=== PATIENT | female | born 1960 | race Caucasian/White ===

== ENCOUNTER → 2021-05-25 14:55 | Outpatient (CLI) | payer OTHER, SELFPAY ==
[2021-05-25 16:23] LABS: Cholesterol 194 mg/dL (140-199); HDL Cholesterol 41 mg/dL (40-60); LDL Cholesterol Calculated 116 mg/dL (<100); Triglycerides 187 mg/dL (35-150)
== END ==
PROVIDERS: PCP Student in an Organized Health Care Education/Training Program; Referring Provider Student in an Organized Health Care Education/Training Program; Visit Provider Student in an Organized Health Care Education/Training Program
DX: Z13.220 Encounter for screening for lipoid disorders (principal)
CPT/HCPCS: 36415; 80061

== ENCOUNTER → 2021-07-09 13:17 | Outpatient (CLI) | payer OTHER, SELFPAY ==
--- NOTE | 2021-07-09 | DI.MG.S_ITS ---
BILATERAL DIGITAL SCREENING MAMMOGRAM 3D/2D WITH CAD: 07/09/2021 CLINICAL: Routine screening. Comparison is made to exams dated: 07/12/2018 mammogram and 12/23/2019 mammogram - outside facility. The tissue of both breasts is predominantly fatty. Current study was also evaluated with a Computer Aided Detection (CAD) system. No significant masses, calcifications, or other findings are seen in either breast. There has been no significant interval change. IMPRESSION: NEGATIVE There is no mammographic evidence of malignancy. A 1 year screening mammogram is recommended. This exam was interpreted at Station ID: [id number]. NOTE: For mammograms, a report in lay terms will be sent to the patient. Approximately 15% of breast malignancies will not be visualized mammographically. In the management of a palpable breast mass, a negative mammogram must not discourage biopsy of a clinically suspicious lesion. Electronically Signed By: Arjun Kong M.D., jr/angelito:07/09/2021 14:45:41 letter sent: Normal Exam ACR BI-RADS Category 1: Negative 3341F
== END ==
PROVIDERS: PCP Student in an Organized Health Care Education/Training Program; Referring Provider Student in an Organized Health Care Education/Training Program; Visit Provider Student in an Organized Health Care Education/Training Program
DX: Z12.31 Encounter for screening mammogram for malignant neoplasm of breast (principal)
CPT/HCPCS: 77063; 77067

== ENCOUNTER 2022-04-04 07:15 | Day surgery (SDC) | payer OTHER, SELFPAY ==
--- NOTE | 2022-04-04 | PATH_ITS ---
[facility] Accession Number: [id number] . 01 Material submitted: . PART A: duodenum - DUODENUM BIOPSY PART B: gastrointestinal site - ANTRUM BIOPSY PART C: ileo-cecal valve - ILEOCECAL VALVE BIOPSY . 01 Diagnosis: A. Duodenum, Biopsy: Duodenal mucosa with mildly increased intraepithelial lymphocytes and predominantly reserved villous architecture; please see comment. Negative for active inflammation, granulomas, dysplasia or malignancy. . B. Antrum, Biopsy: Gastric antral mucosa with mild chronic inflammation. Negative for Helicobacter organisms by immunohistochemistry. Negative for intestinal metaplasia. Negative for dysplasia or malignancy. . C. Ileocecal Valve, Biopsy: Mild active colitis; please see comment. Negative for granulomas, dysplasia or malignancy. [facility] 04/07/2022 1820 Local . 01 Comment: A. The presence of increased intraepithelial lymphocytes is nonspecific but may be associated with early onset or previously treated celiac sprue as well as with Helicobacter pylori infection or peptic injury. It may also be seen in association with NSAID therapy, small bowel bacterial overgrowth, non-gluten protein allergies, or certain autoimmune diseases (e.g. autoimmune enteropathy, autoimmune gastritis, diabetes, rheumatoid arthritis). If celiac disease is suspected clinically, correlation with serologic studies is recommended. . C. The histologic findings in the ileocecal valve biopsy raise a differential diagnosis including infection, drug/toxin induced injury, and in the appropriate clinical setting, idiopathic inflammatory bowel disease. . 01 Electronically signed: . Reji Gan MD, PhD, Pathologist NPI- [id number] . 01 Gross description: . Part A: DUODENUM BIOPSY: Received in formalin are 4 fragment(s) of lu, soft tissue measuring 0.1 x 0.1 x 0.1 cm to 0.3 x 0.3 x 0.3 cm submitted entirely in 1 cassette(s) Part B: ANTRUM BIOPSY: Received in formalin are 2 fragment(s) of lu, soft tissue measuring 0.1 x 0.1 x 0.1 cm to 0.3 x 0.3 x 0.2 cm submitted entirely in 1 cassette(s) Part C: ILEOCECAL VALVE BIOPSY: Received in formalin are 2 fragment(s) of lu, soft tissue measuring 0.1 x 0.1 x 0.1 cm to 0.3 x 0.2 x 0.2 cm submitted entirely in 1 cassette(s) /BRANDYN 04/06/2022 0040 Local . 01 Microscopic: . B. An immunohistochemical stain was performed to evaluate for Helicobacter organisms and is negative. The control stain showed appropriate reactivity. . * This test was developed and its performance characteristics determined by [employer]. It has not been cleared or approved by the U.S. Food and Drug Administration. The FDA has determined that such clearance or approval is not necessary. This test is used for clinical purposes. It should not be regarded as investigational or for research. . 01 Pathologist provided ICD-10: K29.80, K29.70, K52.9 . 01 CPT . 687208, 955931, 976272, D00283 Specimen Comment: A courtesy copy of this report has been sent to [phone] Performed at: [address] [place] [address] [address] [place] [address], [place], [place] [id number] MD Melvin Null MD Phone: [phone]
[2022-04-04 07:43] VITALS: BMI 19.8
[2022-04-04 07:48] VITALS: BP 102/69; PULSE 78; RESP 12; TEMP 36.4; O2SAT 99
[2022-04-04 07:57] LABS: COVID19 -Nasal RAPID Negative (Negative)
[2022-04-04] MEDS: SODIUM CHLORIDE 0.9% 1,000 ML 84 ML IV (07:57)
--- NOTE | 2022-04-04 08:05 | PM.HP.1 ---
History of Present Illness History of Present Illness Date Patient Seen: 04/04/22 Time Patient Seen: 08:05 Chief complaint: COLONOSCOPY/EGD W/POSS BX'S Narrative: I reviewed my recent office note. Patient seems to respond well to PPI. Weight is still down but she does not continue to lose weight. Patient History Medical History Chicken pox Chronic back pain Foot pain (~2011) Frozen shoulder (~2014) Mumps Surgical History Anesthesia Cyst of stomach (~04/2012) Foot neuroma (~09/2013) History of colonoscopy (~08/2016) Intestinal adhesions (~10/2015) Ovarian cyst (~12/2011) Family & Social History Family History Mother Cancer Hyperlipidemia Grandfather Cancer Grandmother History of heart disease Grandmother Stroke Social History: household members spouse Tobacco & Substance use: Smoking Status Never smoker alcohol intake current alcohol intake frequency a few times a month Substance Use Type does not use Meds Home Medications and Allergies Home Medications Medication Instructions Recorded Confirmed Type cetirizine 10 mg capsule (Zyrtec) 10 mg PO DAILY PRN Allergy Symptoms 07/30/20 04/04/22 History omeprazole 20 mg tablet,delayed 20 mg PO DAILY 04/04/22 04/04/22 History release Allergies Allergy/AdvReac Type Severity Reaction Status Date / Time No Known Drug Allergies Allergy Verified 04/04/22 07:41 Review of Systems Review of Systems ROS: Yes All systems reviewed with the patient and are negative except as otherwise documented Exam Vital Signs (past 8 hours): - 04/04/22 07:48 Temperature 97.6 F Pulse Rate 78 Respiratory Rate 12 Blood Pressure 102/69 Pulse Oximetry 99 Oxygen Delivery Method Room Air Oxygen Delivery Method Room Air Const General: cooperative HENMT Head: normal to inspection Eyes General: appearance normal, both eyes and all related structures Neck Neck: normal visual inspection Chest Chest: normal inspection of the chest Resp Effort & Inspection: normal respiratory effort Cardio Rate: regular rate GI Inspection: normal to inspection Skin General: no rashes or lesions noted Neuro General: patient alert and patient awake Extrem General: normal to inspection and no pedal edema Psych Appearance: grossly normal Objective Labs Labs: Laboratory Results - last 24 hr 04/04/22 07:37 SARS-CoV-2 (PCR) Negative Assessment & Plan Assessment & Plan narrative: 61-year-old female with abdominal pain weight loss early satiety mostly responsive to PPI. She has a history of colon polyps. EGD and colonoscopy is pursued today. Time Spent With Patient Critical Care time: I spent a total of [] minutes of critical care time on this patient's care today; this time is exclusive of procedural time.
--- NOTE | 2022-04-04 08:07 | PM.PREOP ---
Pre-operative Note COVID-19 COVID-19 status: Negative Result date/Date tested (Pos, Neg/Pending): 04/04/22 Criteria for continued procedure: Possibility delay results in more complex future surgery or treatment Interval Note History & Physical reviewed/Exam performed by Physician: Yes Changes to H&P: No ASA Class (for procedural sedation): II
--- NOTE | 2022-04-04 09:29 | P.OP.EGD&C_ITS ---
Operative Date/Time/Diagnoses Date of procedure: 04/04/22 Time of procedure: 09:29 Pre-op diagnosis: Weight loss early satiety reflux abdominal pain personal history of colon polyps. Post-op diagnosis: same Procedure & Clinicians Study performed: EGD with biopsies and colonoscopy with biopsies Same procedure as scheduled: Yes Indications: Weight loss early satiety reflux abdominal pain personal history of colon polyps. Surgeon: Israel Enriquez Procedure Notes SCOAP/Timeout: Done Procedure in detail: After the risks and benefits were explained, written and verbal informed consent was obtained. The patient was brought into the procedure room and placed into the left lateral decubitus position. Please see nurse primary health organisation manager notes for sedation details. The scope was introduced into the mouth through the bite bloc k and advanced under direct visualization to the 2nd portion of the duodenum. The scope was slowly withdrawn carefully examining the mucosa for any defects or lesions. Retroflexed views were accomplished in the stomach. The stomach was decompressed, the scope was then removed from the patient who tolerated the procedure well. The patient was then turned around a digital rectal examination accomplished. The scope was introduced into the rectum and advanced to the cecum as identified by the appendiceal orifice and ileocecal valve. The terminal ileum was interrogated. The scope was then slowly withdrawn to carefully examine the mucosa for any defects or lesions. Multiple direct views were made through the dentate line for exclusion of pathology. The colon was decompressed scope remov ed from the patient who tolerated the procedure well. Bowel prep adequate Pediatric colonoscope Scope withdrawal time: 29 minutes Sedation minutes: 53 Specimen(s): none sent Complications: none Impression: 1. Duodenum: This was normal from the bulb through to the 2nd portion. Random D2 biopsies were taken for exclusion of sprue. 2. Stomach: Patient had a mild gastropathy appreciated and antral biopsies were taken for exclusion of Helicobacter. No ulcers no outlet obstruction no mass lesions. Retroflexed views of the LES disclosed sliding hiatal hernia. 3. Esophagus: The squamocolumnar junction correlated with the top of the gastric folds. GEJ was at 40 cm from the incisors. No acute erosive changes no strictures no mass lesions. 4. Terminal ileum: This appeared visually normal. 5. Colon: There was evidence of mild inflammation involving the ileocecal valve and a small swath of mucosa involving the cecum and proximal ascending colon. This was targeted for biopsies. The remainder of the colon did not demonstrate any evidence of inflammation throughout. Patient had diverticulosis noted in the sigmoid. Colon was slightly tortuous in the left colon. I initially saw a sessile polyp that was perhaps 8 mm in greatest dimension around the splenic flexure on the way in. When it came time to remove this on the way out I could not locate this polyp. We spent approximately 29 minutes going back and forth attempting to locate the polyp that was previously visualized. This failed. We did not see any abnormalities after an extensive search. Endoscopic diagnosis 1. Gastropathy 2. Small sliding hiatal hernia 3. Diverticulosis 4. Mild segmental right colon inflammation 5. Splenic flexure sessile polyp-not removed Post-procedure Plan for aftercare: 1. Await histopathology 2. No findings were made to correlate with the patient's symptoms. Consider CT abdomen pelvis. 3. Continue anti-reflux therapy with omeprazole 4. Repeat colonoscopy within 6 months for repeat search for the polyp that escaped us today. Disposition: PACU
[2022-04-04 09:30] VITALS: BP 88/52; PULSE 79; RESP 13; TEMP 36.7; O2SAT 99
[2022-04-04 09:35] VITALS: BP 101/57; PULSE 72; RESP 12; O2SAT 100
[2022-04-04 09:40] VITALS: BP 92/58; PULSE 68; RESP 13; O2SAT 99
--- NOTE | 2022-04-04 09:44 | SUR.PHASEI ---
Dr Enriquez at bedside reviewing DC instructions with pt.
[2022-04-04 09:45] VITALS: BP 97/57; PULSE 78; RESP 14; TEMP 36.6; O2SAT 99
[2022-04-04 09:50] VITALS: BP 99/65; PULSE 74; RESP 13; TEMP 36.7; O2SAT 100
== END 2022-04-04 10:09 | disposition home or self-care (01) ==
PROVIDERS: PCP Student in an Organized Health Care Education/Training Program; Referring Provider Internal Medicine Gastroenterology; Visit Provider Internal Medicine Gastroenterology
PROC: 0DJ08ZZ Inspection of Upper Intestinal Tract, Via Natural or Artificial Opening Endoscopic (ICD-10-PCS; CPT 43235; principal; 2022-04-04 08:30)
PROC: 0DJD8ZZ Inspection of Lower Intestinal Tract, Via Natural or Artificial Opening Endoscopic (ICD-10-PCS; CPT 45378; 2022-04-04 08:30)
DX: K52.9 Noninfective gastroenteritis and colitis, unspecified (principal); R63.4 Abnormal weight loss; R68.81 Early satiety; Z86.010 Personal history of colon polyps; K21.9 Gastro-esophageal reflux disease without esophagitis; K31.9 Disease of stomach and duodenum, unspecified; K44.9 Diaphragmatic hernia without obstruction or gangrene; K57.30 Diverticulosis of large intestine without perforation or abscess without bleeding; D12.3 Benign neoplasm of transverse colon; K29.50 Unspecified chronic gastritis without bleeding
CPT/HCPCS: 45380; 43239; 87635; J2704

== ENCOUNTER → 2022-08-22 09:20 | Outpatient (CLI) | payer OTHER, SELFPAY ==
[2022-08-23 20:13] LABS: Tissue Transglutaminase IgA <2 U/mL (0-3); Tissue Transglutaminase IgG 3 U/mL (0-5)
== END ==
PROVIDERS: PCP Student in an Organized Health Care Education/Training Program; Referring Provider Internal Medicine Gastroenterology; Visit Provider Internal Medicine Gastroenterology
DX: K21.9 Gastro-esophageal reflux disease without esophagitis (principal); Z86.010 Personal history of colon polyps; R63.4 Abnormal weight loss; R10.13 Epigastric pain; R68.81 Early satiety
CPT/HCPCS: 36415; 83516

== ENCOUNTER → 2022-09-08 10:41 | Outpatient (CLI) | payer OTHER, SELFPAY ==
--- NOTE | 2022-09-08 | DI.MG.S_ITS ---
BILATERAL DIGITAL SCREENING MAMMOGRAM 3D/2D WITH CAD: 09/08/2022 CLINICAL: Routine screening. Comparison is made to exams dated: 07/09/2021 mammogram - [facility], 12/23/2019 mammogram, and 07/12/2018 mammogram - outside facility. Both breasts are heterogeneously dense, which may obscure small masses (category c / 51-75% glandular tissue). Current study was also evaluated with a Computer Aided Detection (CAD) system. No significant masses, calcifications, or other findings are seen in either breast. There has been no significant interval change. IMPRESSION: NEGATIVE There is no mammographic evidence of malignancy. A 1 year screening mammogram is recommended. Based on the Tyrer Cuzick model (a risk assessment model) the patient's lifetime risk is 10.9% and her 10 year risk is 4.7%. According to the ACR, ACS, and NCCN guidelines, an annual breast MRI exam along with mammogram is recommended if the patient's lifetime risk is 20% or greater. This exam was interpreted at Station ID: [id number]. NOTE: For mammograms, a report in lay terms will be sent to the patient. Approximately 15% of breast malignancies will not be visualized mammographically. In the management of a palpable breast mass, a negative mammogram must not discourage biopsy of a clinically suspicious lesion. Electronically Signed By: Mark grimes/angelito:09/08/2022 14:07:14 letter sent: Normal Exam ACR BI-RADS Category 1: Negative 3341F
== END ==
PROVIDERS: PCP Student in an Organized Health Care Education/Training Program; Referring Provider Student in an Organized Health Care Education/Training Program; Visit Provider Student in an Organized Health Care Education/Training Program
DX: Z12.31 Encounter for screening mammogram for malignant neoplasm of breast (principal)
CPT/HCPCS: 77063; 77067

== ENCOUNTER → 2023-06-08 14:17 | Outpatient (CLI) | payer OTHER, SELFPAY ==
[2023-06-08 14:59] LABS: Hemoglobin 12.6 g/dL (12.0-16.0); Mean Corpuscular HGB Conc 33.1 % (30-36); Mean Corpuscular Hemoglobin 29.1 PG (26-34); Mean Corpuscular Volume 87.7 fL (80-100); Platelet Count 199 X10^3/uL (150-400); Red Blood Cell Count 4.33 X10^6/uL (4.0-5.2); Red Cell Distribution Width 13.4 % (11.6-14.8); White Blood Cell Count 4.6 X10^3/uL (4.5-11.0)
[2023-06-08 15:28] LABS: Alanine Aminotransferase 16 IU/L (<35); Albumin 4.2 g/dL (3.5-5.0); Albumin Globulin Ratio 1.4 (1.0-2.8); Alkaline Phosphatase 78 U/L (38-126); Aspartate Aminotransferase 21 IU/L (14-36); BUN Creatinine Ratio 14.7 (6-22); Bilirubin Total 0.5 mg/dL (0.2-1.3); Blood Urea Nitrogen 10 mg/dL (7-17); Calcium 9.1 mg/dL (8.4-10.2); Carbon Dioxide 28 mmol/L (22-32); Chloride 102 mmol/L (98-107); Cholesterol 171 mg/dL (140-199); Estimated Glomerular Filt Rate > 60 mL/min (>60); Globulin 2.9 g/dL (1.7-4.1); Glucose 92 mg/dL (80-110); HDL Cholesterol 44 mg/dL (40-60); HEMOLYSIS < 15 (0-50); LDL Cholesterol Calculated 88 mg/dL (<100); Potassium 3.9 mmol/L (3.4-5.1); Sodium 138 mmol/L (137-145); Total Protein 7.1 g/dL (6.3-8.2); Triglycerides 196 mg/dL (35-150)
[2023-06-08 15:59] LABS: TSH w/ Reflex to FT4 1.66 uIU/mL (0.47-4.68)
== END ==
PROVIDERS: PCP Internal Medicine; Referring Provider Internal Medicine; Visit Provider Internal Medicine
DX: E78.2 Mixed hyperlipidemia (principal)
CPT/HCPCS: 36415; 80053; 80061; 84443; 85027

== ENCOUNTER → 2023-09-12 08:18 | Outpatient (CLI) | payer OTHER, SELFPAY ==
--- NOTE | 2023-09-12 08:19 | DI.MG.S_ITS ---
BILATERAL DIGITAL SCREENING MAMMOGRAM 3D/2D WITH CAD: 09/12/2023 CLINICAL: Routine screening. Comparison is made to exams dated: 09/08/2022 mammogram, 07/09/2021 mammogram - [facility], 12/23/2019 mammogram, and 07/12/2018 mammogram - outside facility. Both breasts are heterogeneously dense, which may obscure small masses (category c / 51-75% glandular tissue). Current study was also evaluated with a Computer Aided Detection (CAD) system. No significant masses, calcifications, or other findings are seen in either breast. There has been no significant interval change. IMPRESSION: NEGATIVE There is no mammographic evidence of malignancy. A 1 year screening mammogram is recommended. Based on the Tyrer Cuzick model (a risk assessment model) the patient's lifetime risk is 10.5% and her 10 year risk is 4.7%. According to the ACR, ACS, and NCCN guidelines, an annual breast MRI exam along with mammogram is recommended if the patient's lifetime risk is 20% or greater. This exam was interpreted at Station ID: [id number]. NOTE: For mammograms, a report in lay terms will be sent to the patient. Approximately 15% of breast malignancies will not be visualized mammographically. In the management of a palpable breast mass, a negative mammogram must not discourage biopsy of a clinically suspicious lesion. Electronically Signed By: Mark grimes/angelito:09/12/2023 15:20:08 letter sent: Normal Exam ACR BI-RADS Category 1: Negative 3341F
== END ==
LOC: MAMMO 08:19
PROVIDERS: PCP Internal Medicine; Referring Provider Internal Medicine; Visit Provider Internal Medicine
DX: Z12.31 Encounter for screening mammogram for malignant neoplasm of breast (principal); R92.333 Mammographic heterogeneous density, bilateral breasts
CPT/HCPCS: 77063; 77067

== ENCOUNTER → 2024-10-25 15:38 | Outpatient (CLI) | payer MEDICARE, SELFPAY ==
--- NOTE | 2024-10-25 15:41 | DI.MG.S_ITS ---
MM screening mammo BI: 10/25/2024. BI-RADS: 1 CLINICAL: 64-year old female for bilateral screening mammogram. Tyrer-Cuzick lifetime risk of 5.6%. No personal or first-degree family history of breast cancer. PRIOR EXAMS 09/12/2023, 09/08/2022, 07/09/2021. MAMMOGRAPHY TECHNIQUE: 2D and 3D (tomosynthesis) digital mammographic views obtained, with additional images as needed for full coverage. Current study was also evaluated with a Computer Aided Detection (CAD) system. DENSITY C. The breasts are heterogeneously dense, which may obscure small masses. MAMMOGRAPHY FINDINGS Bilateral: No suspicious mass, asymmetry, microcalcification, or other abnormality seen. IMPRESSION: * No evidence of malignancy. RECOMMENDATIONS Bilateral * Annual screening mammography. OVERALL ASSESSMENT CATEGORY BI-RADS-1: Negative. The [employer] recommends annual screening mammography beginning at age 40 for women with average risk of breast cancer. ELECTRONICALLY SIGNED: Zac Tellez M.D. on 10/25/2024 at 10:39:16 PM PT Interpreting Station ID: [id number]
== END ==
PROVIDERS: PCP Internal Medicine; Referring Provider Internal Medicine; Visit Provider Internal Medicine
DX: Z12.31 Encounter for screening mammogram for malignant neoplasm of breast (principal); R92.333 Mammographic heterogeneous density, bilateral breasts
CPT/HCPCS: 77063; 77067

== ENCOUNTER 2024-11-11 09:45 | Day surgery (SDC) | payer MEDICARE, OTHER, SELFPAY ==
--- NOTE | 2024-11-11 | PATH_ITS ---
[facility] Accession Number: [id number] No. of containers..01 Tissue . 01 Material submitted: . colon - COLON, SIGMOID POLYP . 01 Diagnosis: SIGMOID COLON POLYP, BIOPSY: Polypoid coloic mucosa with vaguely serrated features, favor hyperplastic polyp see note. . NOTE: No conventional dysplasia or sessile serrated adenoma/polyp is identified. . Additional deeper sections were examined. REBEKA 11/18/2024 1600 Local . 01 Electronically signed: . Hernandez Molina MD, Dermatopathologist NPI- [id number] . 01 Gross description: . COLON, SIGMOID POLYP: Received in formalin are 2 fragment(s) of lu, soft tissue measuring 0.2 x 0.2 x 0.2 cm to 0.4 x 0.2 x 0.2 cm submitted entirely in 1 cassette(s) /BRANDYN 11/13/2024 1845 Local . 01 Pathologist provided ICD-10: K63.5 . 01 CPT . 783834 Specimen Comment: A courtesy copy of this report has been sent to [phone] Performed at: [address] [id number] MD Melvin Null MD Phone: [phone]
[2024-11-11 10:17] VITALS: BP 110/57; PULSE 67; RESP 16; TEMP 36.9; O2SAT 99
[2024-11-11] MEDS: LACTATED RINGERS 1,000 ML 42 ML IV (10:28)
--- NOTE | 2024-11-11 10:30 | PM.HP.IH.1 ---
History of Present Illness History of Present Illness Date Patient Seen: 11/11/24 Chief complaint: Screening Colonoscopy Narrative: History of colon polyps with last colonoscopy 3 years ago and the distal polyp was unable to be found on withdrawal. Need for follow-up colonoscopy [facility] Medical History (Updated 06/08/23 @ 13:59 by Moi Soni MD) Menopausal syndrome Allergic rhinitis Mixed hyperlipidemia Frozen shoulder (~2014) Foot pain (~2011) Chronic back pain Mumps Chicken pox Environmental and seasonal allergies Surgical History Anesthesia History of colonoscopy (~08/2016) Intestinal adhesions (~10/2015) Foot neuroma (~09/2013) Cyst of stomach (~04/2012) Ovarian cyst (~12/2011) Family History Mother Cancer Hyperlipidemia Grandfather Cancer Grandmother History of heart disease Grandmother Stroke Social History details: , 2 grown children, retired airplane parts household members: spouse Smoking Status: Never smoker alcohol intake: current Meds Home Medications and Allergies Home Medications ?Medication ?Instructions ?Recorded ?Confirmed ?Type cetirizine 10 mg capsule (Zyrtec) 10 mg PO DAILY PRN Allergy Symptoms 07/30/20 11/11/24 History Allergies Allergy/AdvReac Type Severity Reaction Status Date / Time No Known Drug Allergies Allergy Verified 11/11/24 10:05 Exam Vital Signs (past 8 hours): - 11/11/24 10:17 Temperature 98.4 F Pulse Rate 67 Respiratory Rate 16 Blood Pressure 110/57 L Pulse Oximetry 99 Oxygen Delivery Method Room Air Oxygen Delivery Method Room Air Narrative Exam Narrative: Oropharynx free of lesion Assessment & Plan Assessment & Plan narrative: History of polyp that was missed in the distal colon. Need for follow-up colonoscopy. Risks, benefits, alternatives have been explained. Time-Based Coding :: [TOTAL MINUTES] spent with patient and on the chart (including review of chart, obtaining history, exam, reviewing outside data, placing orders, documenting exam and treatment plan, and counseling patient) on [DATE]. 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
--- NOTE | 2024-11-11 10:31 | PM.OP.COLON ---
Operative Date/Time/Diagnoses Date of procedure: 11/11/24 Time of procedure: 11:08 Pre-op diagnosis: See indication and findings Post-op diagnosis: same Procedure & Clinicians Study performed: Colonoscopy Same procedure(s) as scheduled: Yes Indications: History of polyps Surgeon: Peggy Dobbs Procedure Notes Procedure in detail: After informed consent was obtained the patient was placed in left lateral decubitus position. The video colonoscope was introduced in the rectum slowly advanced cecum. Preparation was good. On slow withdrawal mucosa was carefully examined. The scope was removed. The patient tolerated procedure well. Blood loss none Complications none Sedation mac Findings 1. Polyp initially seen in the sigmoid approximately 30 cm from the anal verge with any loops pulled out. A forceps was used to lee this area. On withdrawal however there is very difficult to find the same spot again. Eventually the polyp was seen and removed with Jumbo biopsy forceps. 2. Scattered diverticulosis 3. Otherwise negative colonoscopy to cecum Will wait for her pathology results and then decide whether she should have follow-up in 3-5 years
--- NOTE | 2024-11-11 10:44 | EKG_ITS ---
[facility] [address] [place] [address] Test Date: 2024-11-11 Pat Name: Marta Monaco Department: [facility] Room: Gender: Female Learning Technologist: KAYLEY : 1960 Requested By: Order Number: [id number] Reading MD: Daniel Dupont MD Measurements Intervals [place] Rate: 64 P: 83 IA: 160 QRS: 83 QRSD: 86 T: 68 QT: 432 QTc: 445 Interpretive Statements Normal sinus rhythm with sinus arrhythmia Nonspecific ST abnormality Electronically Signed On 11-11-2024 17:46:43 PDT by Daniel Dupont MD
[2024-11-11 11:09] VITALS: BP 85/54; PULSE 79; RESP 14; TEMP 36.2; O2SAT 100
[2024-11-11 11:14] VITALS: BP 97/60; PULSE 76; RESP 13; O2SAT 100
[2024-11-11 11:19] VITALS: BP 90/54; PULSE 66; RESP 14; O2SAT 100
[2024-11-11 11:24] VITALS: BP 91/48; PULSE 58; RESP 11; TEMP 36.3; O2SAT 99
[2024-11-11 11:34] VITALS: BP 95/62; PULSE 55; RESP 14; TEMP 36.3; O2SAT 99
== END 2024-11-11 11:49 | disposition home or self-care (01) ==
PROVIDERS: PCP Internal Medicine; Referring Provider Internal Medicine Gastroenterology; Visit Provider Internal Medicine Gastroenterology
PROC: 0DJD8ZZ Inspection of Lower Intestinal Tract, Via Natural or Artificial Opening Endoscopic (ICD-10-PCS; CPT 45378; principal; 2024-11-11 11:00)
DX: Z12.11 Encounter for screening for malignant neoplasm of colon (principal); Z86.0100 Personal history of colon polyps, unspecified; K57.30 Diverticulosis of large intestine without perforation or abscess without bleeding; K63.5 Polyp of colon; R00.8 Other abnormalities of heart beat
CPT/HCPCS: 45380; 93005; 93010; J2704

== ENCOUNTER → 2024-11-14 14:10 | Outpatient (CLI) | payer MEDICARE, OTHER, SELFPAY ==
[2024-11-14 14:59] LABS: Hematocrit 38.5 % (36-46); Hemoglobin 12.9 g/dL (12.0-16.0); Mean Corpuscular HGB Conc 33.4 % (30-36); Mean Corpuscular Hemoglobin 30.5 PG (26-34); Mean Corpuscular Volume 91.3 fL (80-100); Platelet Count 182 X10^3/uL (150-400); Red Blood Cell Count 4.22 X10^6/uL (4.0-5.2); Red Cell Distribution Width 12.6 % (11.6-14.8); White Blood Cell Count 5.8 X10^3/uL (4.5-11.0)
[2024-11-14 15:26] LABS: Aspartate Aminotransferase 22 IU/L (14-36); BUN Creatinine Ratio 13.6 (6-22); Blood Urea Nitrogen 9 mg/dL (7-17); Calcium 9.3 mg/dL (8.4-10.2); Carbon Dioxide 27 mmol/L (22-32); Chloride 104 mmol/L (98-107); Cholesterol 159 mg/dL (140-199); Estimated Glomerular Filt Rate > 60 mL/min (>60); Glucose 76 mg/dL (70-99); HDL Cholesterol 47 mg/dL (40-60); HEMOLYSIS < 15 (0-50); LDL Cholesterol Calculated 86 mg/dL (<100); Sodium 139 mmol/L (137-145); Triglycerides 132 mg/dL (35-150)
== END ==
PROVIDERS: PCP Internal Medicine; Referring Provider Internal Medicine; Visit Provider Internal Medicine
DX: E78.2 Mixed hyperlipidemia (principal); Z86.0100 Personal history of colon polyps, unspecified; D64.9 Anemia, unspecified
CPT/HCPCS: 36415; 80048; 80061; 84450; 85027

== ENCOUNTER → 2024-11-20 13:56 | Outpatient (CLI) | payer MEDICARE, OTHER, SELFPAY ==
--- NOTE | 2024-11-20 | DI.RAD.S_ITS ---
PROCEDURE: XR DEXA AXIAL SKELETON INDICATIONS: OSTEOPENIA COMPARISON: None. FINDINGS: Lumbar Spine: L1-L4. Bone mineral density 0.836 g/cm2, T score -1.9. Left Femoral Neck: Bone mineral density 0.672 g/cm2, T score -1.6. Left Hip: Bone mineral density 0.817 g/cm2, T score -1.0. Fracture Risk Calculation (when applicable): 10-year fracture risk of a major osteoporotic fracture 8.0 percent and of a hip fracture 1.0 percent. (T score greater or equal to -1.0 to: NORMAL) (T score from -1.1 to -2.4: OSTEOPENIA) (T score less than or equal to -2.5: OSTEOPOROSIS) IMPRESSION: Osteopenia. Follow-up guidelines as follows: Osteoporosis: Consider a repeat DEXA and Vertebral Fracture Assessment (VFA) exam in 2 years or sooner if medically necessary, to reassess this patient's status. Osteopenia: Consider a repeat DEXA in 2-3 years to reassess this patient's status, or if there is a new clinical indication. Normal: Consider a repeat DEXA in 5 years or sooner, or if there is a new clinical indication. All treatment decisions require clinical judgment and consideration of individual patient factors, including patient preferences, comorbidities, previous drug use, risk factors not captured in the FRAX model (e.g., frailty, falls, vitamin D deficiency, increased bone turnover, interval significant decline in bone density ) and possible under- or over-estimation of fracture risk by FRAX. In addition, the NOF Guide recommends that FDA-approved medical therapies be considered in postmenopausal women and men age >= 50 years with a: * Hip or vertebral (clinical or morphometric) fracture * T-score of <=-2.5 at the spine or hip * Ten-year fracture probability by FRAX of >= 3% for hip fracture or >=20% for major osteoporotic fracture. Dictated by: Mark Espinoza M.D. on 11/21/2024 at 13:47 Approved by: Mark Espinoza M.D. on 11/21/2024 at 13:48
== END ==
PROVIDERS: PCP Internal Medicine; Referring Provider Internal Medicine; Visit Provider Internal Medicine
DX: M85.89 Other specified disorders of bone density and structure, multiple sites (principal)
CPT/HCPCS: 77080